=== PATIENT | female | born 1930 | race Caucasian/White ===

== ENCOUNTER 2016-06-25 11:47 | Emergency (ER) | payer MEDICARE ==
[2016-06-25] MEDS ORDERED: oxyCOD/ACETAMIN 5 MG/325 MG TABLET PO STA (13:50)
[2016-06-25] MEDS ORDERED: oxyCOD/ACETAMIN 5 MG/325 MG TABLET PO ONE (13:55)
[2016-06-25] MEDS ORDERED: ENOXAPARIN 100 MG/ML SYRINGE SUBQ STA (15:36)
[2016-06-25] MEDS ORDERED: ENOXAPARIN 100 MG/ML SYRINGE SUBQ ONE (15:41)
== END 2016-06-25 16:10 | disposition home or self-care (01) ==
DX: I82.C12 Acute embolism and thrombosis of left internal jugular vein (principal); I82.B12 Acute embolism and thrombosis of left subclavian vein
CPT/HCPCS: 36415; 76536; 85025; 93971; 96372; 99283; 99284; A9270; J1650

== ENCOUNTER 2016-08-08 12:12 | Outpatient (CLI) | payer MEDICARE, OTHER | END 2016-08-08 12:13 | disposition home or self-care (01) | DX: W18.12XA Fall from or off toilet with subsequent striking against object, initial encounter (principal); Y93.89 Activity, other specified; Y92.012 Bathroom of single-family (private) house as the place of occurrence of the external cause; R55 Syncope and collapse | CPT/HCPCS: A0425; A0427 ==

== ENCOUNTER 2016-08-08 12:59 | Observation (INO) | payer MEDICARE, OTHER ==
[2016-08-08] MEDS ORDERED: SODIUM CHLORIDE 0.9% 1,000 ML IV ONE (13:16)
[2016-08-08] MEDS ORDERED: cefTRIAXone 1 GM in SODIUM CHLORIDE 0.9% MINIBAG 100 ML IV STA ×2 (14:38→14:55)
[2016-08-08] MEDS ORDERED: cefTRIAXone 1 GM VIAL ONE (14:41)
[2016-08-08] MEDS ORDERED: HYDROcod/ACETAM 5/325 MG TABLET PO PRN (15:32)
[2016-08-08] MEDS ORDERED: ONDANSETRON 4 MG/2 ML VIAL IVP PRN (15:32)
[2016-08-08] MEDS ORDERED: SODIUM CHLORIDE FLUSH 0.9% 10 ML SYRINGE IVP PRN (15:32)
[2016-08-08] MEDS ORDERED: ACETAMINOPHEN 325 MG TABLET PO PRN (15:32)
[2016-08-08] MEDS: SODIUM CHLORIDE 0.9% 1,000 ML IV SCH (17:00)
[2016-08-08] MEDS: SODIUM CHLORIDE FLUSH 0.9% 10 ML SYRINGE IVP SCH (22:30)
[2016-08-08] MEDS ORDERED: SODIUM CHLORIDE 0.9% 500 ML IV SCH (23:33)
[2016-08-09] MEDS: SODIUM CHLORIDE 0.9% 1,000 ML IV SCH (00:26)
[2016-08-09] MEDS: SODIUM CHLORIDE FLUSH 0.9% 10 ML SYRINGE IVP SCH (04:57)
[2016-08-09] MEDS ORDERED: POLYETHYLENE GLYCOL 3350 17 GM PACKET PO SCH (09:00)
[2016-08-09] MEDS ORDERED: FAMOTIDINE 20 MG TABLET PO SCH (09:00)
[2016-08-09] MEDS ORDERED: cefTRIAXone 1 GM in SODIUM CHLORIDE 0.9% MINIBAG 100 ML IV SCH (09:00)
== END 2016-08-09 12:23 | disposition home or self-care (01) ==
DX: R55 Syncope and collapse (principal); E86.0 Dehydration; N39.0 Urinary tract infection, site not specified; S13.9XXA Sprain of joints and ligaments of unspecified parts of neck, initial encounter; S00.83XA Contusion of other part of head, initial encounter; S00.31XA Abrasion of nose, initial encounter; W18.12XA Fall from or off toilet with subsequent striking against object, initial encounter; C55 Malignant neoplasm of uterus, part unspecified; E78.5 Hyperlipidemia, unspecified; Z95.828 Presence of other vascular implants and grafts; Z79.899 Other long term (current) drug therapy; Z79.01 Long term (current) use of anticoagulants; Z90.710 Acquired absence of both cervix and uterus; Z86.718 Personal history of other venous thrombosis and embolism
CPT/HCPCS: 36415; 51701; 70450; 71010; 72125; 80048; 80053; 81001; 82330; 83605; 83690; 84484; 85025; 85610; 85730; 86850; 86900; 86901; 87077; 87086; 87181; 93005; 93010; 96361; 96365; 96375; 99284; 99285; A9270; G0378

== ENCOUNTER 2016-09-30 11:12 | Outpatient (CLI) | payer MEDICARE | END 2016-09-30 11:13 | disposition critical access hospital (66) | LOC: EMS 11:12 | PROVIDERS: ATTEND Surgery | DX: R55 Syncope and collapse (principal); R11.0 Nausea; R53.1 Weakness | CPT/HCPCS: A0425; A0427 ==

== ENCOUNTER 2016-09-30 11:51 | Emergency (ER) | payer MEDICARE ==
--- NOTE | 2016-09-30 12:29 | ED Physician Documentation ---
PD HPI SYNCOPE - Stated complaint Stated Complaint: SYNCOPE - Chief complaint Chief Complaint: Neuro - History obtained from History obtained from: Patient - History of Present Illness Witnessed: Witnessed (patient had chemo couple days ago and is feeling nauseated and less intake. Was walking toward bathroom, felt lightheaded and sat to the floor. Did not seem fully out. Was seen to be pale. EMS called and found patietn with low BP about 80s systolic. BS also low and given IV dextrose. Patient improved enroute. Feeling still weak in ED. No injury/pains.) Timing - onset: How many minutes ago (30), Today Preceding symptoms: Nausea / vomiting, Light headed, Generalized weakness. No: Headache, Chest pain, Palpitations, Abdominal pain Associated symptoms: Nausea / vomiting. No: Headache, Chest pain, Abdominal pain Contributing factors: Just stood up. 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 denies: Fever, Chills, Myalgias Nose: denies: Rhinorrhea / runny nose, Congestion Throat: denies: Sore throat Cardiac: denies: Chest pain / pressure, Palpitations Respiratory: denies: Dyspnea, Cough GI: reports: Nausea, Vomiting. denies: Abdominal Pain, Diarrhea, Bloody / black stool : denies: Dysuria, Frequency Neurologic: reports: Generalized weakness, Near syncope. 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 : Incontinence HEENT: None Psych: None Musculoskeletal: Osteoarthritis Derm: None - Past Surgical History Past Surgical History: Yes General: Appendectomy Ortho: Hip replacement, Knee replacement /DATA ENTRY ASSOCIATE: Hysterectomy, Other - Present Medications Home Medications: Ambulatory Orders Medication Instructions Recorded Confirmed Atorvastatin [Lipitor] 20 mg PO QPM 08/08/16 08/09/16 Dabigatran Etexilate Mesylate 150 mg PO DAILY 08/08/16 08/09/16 [Pradaxa] Fluoxetine HCl [Prozac] 20 mg PO DAILY 08/08/16 08/09/16 LORazepam [Ativan] 0.5 mg PO Q6H 08/08/16 08/09/16 Ondansetron HCl [Zofran] 8 mg PO BID PRN 08/08/16 08/09/16 Potassium Chloride 20 meq PO DAILY 08/08/16 08/09/16 Prochlorperazine Maleate 10 mg PO Q6H PRN 08/08/16 08/09/16 [Compazine] Acetaminophen [Tylenol] 650 mg PO Q4HR PRN #0 tablet 08/09/16 Famotidine [Pepcid] 20 mg PO DAILY #30 tablet 08/09/16 - Allergies Allergies/Adverse Reactions: Allergies Allergy/AdvReac Type Severity Reaction Status Date / Time cyclobenzaprine Allergy Hives Verified 08/08/16 13:43 - Social History Does the pt smoke?: No Smoking Status: Never smoker Does the pt drink ETOH?: No Does the pt have substance abuse?: No - Immunizations Immunizations are current?: Yes - POLST Patient has POLST: Yes PD ED PE NORMAL - Vitals Vital signs reviewed: Yes - General General: Alert and oriented X 3, Well developed/nourished, Other (yellow/purple ecchymosis lefft lateral periorbital, without current tenderness. Daughter says it was from fall 2 weeks ago.) - HEENT HEENT: Ears normal, Pharynx benign. No: Moist mucous membranes - Neck Neck: Supple, no meningeal sign, No adenopathy - Cardiac Cardiac: RRR, No murmur - Respiratory Respiratory: Clear bilaterally, Other (Port left upper chestwall without redness , drainage, nor tenderness. ) - Abdomen Abdomen: Normal bowel sounds, Non tender - Female Female : Deferred - Rectal Rectal: Deferred - Back Back: No CVA TTP - Derm Derm: No: Normal color (pale) - Extremities Extremities: No deformity, No tenderness to palpate, No edema, No calf tenderness / cord - Neuro Neuro: Alert and oriented X 3, No motor deficit, Normal speech Results - Vitals Vitals: Vital Signs - 24 hr 09/30/16 09/30/16 09/30/16 11:54 14:05 16:07 Temperature 35.9 C L 36.3 C L Heart Rate 88 86 69 Respiratory 21 16 18 Rate Blood Pressure 142/71 H 149/82 H 139/62 H O2 Saturation 95 96 95 Oxygen O2 Source Room air - Labs Labs: Laboratory Tests 09/30/16 09/30/16 09/30/16 12:15 12:15 12:15 WBC 4.6 L RBC 3.73 L Hgb 12.0 Hct 34.7 L MCV 92.9 MCH 32.0 H MCHC 34.5 RDW 18.0 H Plt Count 287 MPV 7.4 L Neut # 3.4 Lymph # 1.1 L [place] # 0.1 Eos # 0.0 Baso # 0.0 Absolute Nucleated RBC 0.00 Nucleated RBCs 0.0 Sodium 138 Potassium 3.1 L Chloride 103 Carbon Dioxide 26 Anion Gap 9.0 BUN 35 H Creatinine 0.8 Estimated GFR (MDRD) 68 L Glucose 130 H Calcium 8.6 Magnesium 1.5 L Total Bilirubin 0.9 AST 17 ALT 16 Alkaline Phosphatase 43 Total Protein 5.9 L Albumin 3.4 Globulin 2.5 Albumin/Globulin Ratio 1.4 Lipase 23 Urine Color Urine Clarity Urine pH Ur Specific [place] Urine Protein Urine Glucose (UA) Urine Ketones Urine Occult Blood Urine Nitrite Urine Bilirubin Urine Urobilinogen Ur Leukocyte Esterase Ur Microscopic Review Urine Culture Comments 09/30/16 13:25 WBC RBC Hgb Hct MCV MCH MCHC RDW Plt Count MPV Neut # Lymph # Hall # Eos # Baso # Absolute Nucleated RBC Nucleated RBCs Sodium Potassium Chloride Carbon Dioxide Anion Gap BUN Creatinine Estimated GFR (MDRD) Glucose Calcium Magnesium Total Bilirubin AST ALT Alkaline Phosphatase Total Protein Albumin Globulin Albumin/Globulin Ratio Lipase Urine Color YELLOW Urine Clarity CLEAR Urine pH 7.5 Ur Specific [place] 1.010 Urine Protein NEGATIVE Urine Glucose (UA) NEGATIVE Urine Ketones NEGATIVE Urine Occult Blood NEGATIVE Urine Nitrite NEGATIVE Urine Bilirubin NEGATIVE Urine Urobilinogen 1 (NORMAL) Ur Leukocyte Esterase NEGATIVE Ur Microscopic Review NOT INDICATED Urine Culture Comments NOT INDICATED - Rads (name of study) chest Radiology: Prelim report reviewed (clear) PD MEDICAL DECISION MAKING - ED course Complexity details: reviewed results, re-evaluated patient, considered differential, d/w patient Departure - Departure Disposition: 01 Home, Self Care Clinical Impression: Dehydration, Near syncope, Hypokalemia, Chemotherapy induced nausea and vomiting Clinical Impression: (Ruled Out): UTI (urinary tract infection) Condition: Stable Record reviewed to determine appropriate education?: Yes Follow-Up: Jr De aL Cruz MD [Primary Care Provider] - Comments: Usual medications. Encourage to drink frequent fluids. Double your potassium supplement daily for few days. Discharge Date/Time: 09/30/16 16:14
[2016-09-30 12:30] LABS: BASOPHILS % (AUTO) 0.2 %; EOSINOPHILS % (AUTO) 0.7 %; HCT - HEMATOCRIT 34.7 % (37.0-47.0); LYMPHOCYTES # (AUTO) 1.1 10^3/uL (1.5-3.5); LYMPHOCYTES % (AUTO) 24.7 %; MEAN CORPUSCULAR HGB CONC 34.5 g/dL (32.0-36.0); MEAN CORPUSCULAR VOLUME 92.9 fL (81.0-99.0); MEAN PLATELET VOLUME 7.4 fL (7.9-10.8); MONOCYTES # (AUTO) 0.1 10^3/uL (0.0-1.0); MONOCYTES % (AUTO) 1.3 %; NEUTROPHILS # (AUTO) 3.4 10^3/uL (1.5-6.6); NEUTROPHILS % (AUTO) 73.1 %; RED BLOOD COUNT 3.73 10^6/uL (4.20-5.40); UNCORRECTED WHITE BLOOD COUNT 4.6 x10^3/uL; WHITE BLOOD COUNT 4.6 x10^3/uL (4.8-10.8)
[2016-09-30 12:43] LABS: ALBUMIN/GLOBULIN RATIO 1.4 (1.0-2.2); BILIRUBIN,TOTAL 0.9 mg/dL (0.2-1.0); CALCIUM 8.6 mg/dL (8.5-10.3); CREATININE 0.8 mg/dL (0.4-1.0); POTASSIUM 3.1 mmol/L (3.5-5.0); TOTAL PROTEIN 5.9 g/dL (6.7-8.2)
[2016-09-30] MEDS ORDERED: SODIUM CHLORIDE 0.9% 1,000 ML IV ONE (13:10)
[2016-09-30] MEDS ORDERED: ONDANSETRON 4 MG/2 ML VIAL ONE (13:10)
[2016-09-30] MEDS ORDERED: ONDANSETRON 4 MG/2 ML VIAL IVP STA (13:15)
--- NOTE | 2016-09-30 13:42 | XRAY Preliminary Report ---
Exam: XR Chest 1 View Impression: New small left pleural effusion. [facility] SITE ID: [id number]
--- NOTE | 2016-09-30 13:44 | XRAY Report ---
EXAM: CHEST RADIOGRAPHY EXAM DATE: 09/30/2016 01:25 PM. CLINICAL HISTORY: Weakness, dyspnea. COMPARISON: 08/08/2016. TECHNIQUE: 1 view. FINDINGS: There is redemonstration of a port overlying the left chest wall. The tip is overlying the superior v laura cava. The appearance is similar to the previous study. The heart is mildly enlarged with atherosc lerosis of the aorta. There is no focal infiltrate. Blunting of the left costophrenic angle is noted may represent small left pleural effusion. No pneumothorax is seen. There are degenerative changes of both shoulders. Impression: New small left pleural effusion. [facility] Referring Provider Line: [phone] SITE ID: [id number]
[2016-09-30 13:45] LABS: BILIRUBIN,URINE NEGATIVE (NEGATIVE); PH,URINE 7.5 PH (5.0-7.5)
[2016-09-30 13:47] LABS: UA CHARGE (STRIP ONLY) YES; UR CULTURE IF IND NOT INDICATED
[2016-09-30] MEDS ORDERED: POTASSIUM BICARB 25 MEQ TABLET PO STA (13:57)
[2016-09-30] MEDS ORDERED: POTASSIUM CHLOR 10 MEQ/100 ML 100 ML IV ONE ×2 (13:57→13:59)
[2016-09-30] MEDS ORDERED: POTASSIUM BICARB 25 MEQ TABLET PO ONE (13:59)
[2016-09-30 16:07] VITALS: BP 139/62
== END 2016-09-30 16:14 | disposition home or self-care (01) ==
LOC: ED 11:51
DX: E86.0 Dehydration (principal); R55 Syncope and collapse; E87.6 Hypokalemia; R11.2 Nausea with vomiting, unspecified; I45.2 Bifascicular block; R94.31 Abnormal electrocardiogram [ECG] [EKG]; E78.00 Pure hypercholesterolemia, unspecified; K21.9 Gastro-esophageal reflux disease without esophagitis; M19.90 Unspecified osteoarthritis, unspecified site
CPT/HCPCS: 36415; 51701; 71010; 80053; 81003; 83690; 83735; 85025; 93005; 96374; 96375; 99284; A9270; 81001; 87086

== ENCOUNTER 2016-11-12 23:04 | Outpatient (CLI) | payer MEDICARE | END 2016-11-12 23:05 | disposition critical access hospital (66) | DX: R11.2 Nausea with vomiting, unspecified (principal); R53.1 Weakness | CPT/HCPCS: A0425; A0427 ==

== ENCOUNTER 2016-11-12 23:48 | Emergency (ER) | payer MEDICARE ==
[2016-11-13 00:35] LABS: BILIRUBIN,URINE NEGATIVE (NEGATIVE)
[2016-11-13 00:37] LABS: UA w/ MICROSCOPIC CHARGE YES
[2016-11-13 00:44] LABS: UR CULTURE IF IND INDICATED; WBC,URINE >25 /HPF (0-5)
[2016-11-13] MEDS ORDERED: cefTRIAXone 1 GM in SODIUM CHLORIDE 0.9% MINIBAG 100 ML IV STA (00:50)
--- NOTE | 2016-11-13 00:51 | XRAY Preliminary Report ---
Exam: XR Chest 2 View PA/LAT IMPRESSION: COPD. No acute pulmonary process. [facility] SITE ID: [id number]
[2016-11-13] MEDS ORDERED: cefTRIAXone 1 GM VIAL ONE (00:53)
[2016-11-13 00:59] LABS: ALBUMIN/GLOBULIN RATIO 1.3 (1.0-2.2); BILIRUBIN,TOTAL 0.9 mg/dL (0.2-1.0); BUN - BLOOD UREA NITROGEN 21 mg/dL (6-20); CALCIUM 8.6 mg/dL (8.5-10.3); CARBON DIOXIDE - CO2 25 mmol/L (21-32); CHLORIDE 109 mmol/L (101-111); CREATININE 0.8 mg/dL (0.4-1.0); GFR - MDRD 68 (>89); GLUCOSE 162 mg/dL (70-100); LIPASE 26 U/L (22-51); POTASSIUM 2.9 mmol/L (3.5-5.0); SODIUM 143 mmol/L (135-145); TOTAL PROTEIN 6.5 g/dL (6.7-8.2)
[2016-11-13 01:00] LABS: BASOPHILS % (AUTO) 0.2 %; EOSINOPHILS # (AUTO) 0.1 10^3/uL (0.0-0.7); EOSINOPHILS % (AUTO) 0.5 %; HCT - HEMATOCRIT 38.1 % (37.0-47.0); HGB - HEMOGLOBIN 12.7 g/dL (12.0-16.0); LYMPHOCYTES # (AUTO) 0.9 10^3/uL (1.5-3.5); LYMPHOCYTES % (AUTO) 8.8 %; MEAN CORPUSCULAR HEMOGLOBIN 31.8 pg (27.0-31.0); MEAN CORPUSCULAR HGB CONC 33.3 g/dL (32.0-36.0); MEAN CORPUSCULAR VOLUME 95.4 fL (81.0-99.0); MEAN PLATELET VOLUME 7.6 fL (7.9-10.8); MONOCYTES # (AUTO) 0.5 10^3/uL (0.0-1.0); MONOCYTES % (AUTO) 4.6 %; NEUTROPHILS # (AUTO) 9.1 10^3/uL (1.5-6.6); NEUTROPHILS % (AUTO) 85.9 %; RED CELL DISTRIBUTION WIDTH 16.1 % (12.0-15.0); UNCORRECTED WHITE BLOOD COUNT 10.6 x10^3/uL; WHITE BLOOD COUNT 10.6 x10^3/uL (4.8-10.8)
--- NOTE | 2016-11-13 01:09 | ED Physician Documentation ---
PD HPI NVD - Stated complaint Stated Complaint: VOMITTING/WEAKNESS - Chief complaint Chief Complaint: Abd Pain - History obtained from History obtained from: Patient, Family - History of Present Illness Timing - onset: Today Timing - duration: Hours Timing - details: Abrupt onset, Now resolved Associated symptoms: No: Fever, Abdominal pain Contributing factors: No: Sick contact, Bad food Improved by: Meds Similar symptoms before: Diagnosis (vomiting from chemo) Recently seen: Other (finished radiation therapy last week.) - Additonal information Additional information: 86-year-old female has recently finished chemo and radiation therapy for ovarian cancer. She has not had chemotherapy for over a month and had her last radiation therapy 1 week ago. Tonight she was eating dinner and following dinner she had a piece of rhubarb cake and then shortly after that she been having some vomiting and this appeared to come from nowhere. She tried to take some of her nausea medicine and vomited this as well. She did get a dose of Zofran intravenously in route to the hospital and has resolution of her symptoms at the time of evaluation in the emergency department. Review of Systems Constitutional: reports: Chills, Fatigue, Sweats. denies: Fever Eyes: denies: Decreased vision Ears: denies: Ear pain Nose: reports: Rhinorrhea / runny nose Throat: denies: Sore throat Cardiac: denies: Chest pain / pressure, Palpitations Respiratory: reports: Cough. denies: Dyspnea GI: reports: Nausea, Vomiting, Constipation, Diarrhea (2 days ago). denies: Abdominal Pain : denies: Dysuria, Frequency Skin: denies: Rash Musculoskeletal: denies: Neck pain, Back pain, Extremity pain Neurologic: reports: Numbness (to both forearms for the past month). 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 cancer : Incontinence HEENT: None Psych: None Musculoskeletal: Osteoarthritis Derm: None - Past Surgical History Past Surgical History: Yes General: Appendectomy Ortho: Hip replacement, Knee replacement /MEDIA PROFESSIONAL: Hysterectomy, Other - Present Medications Home Medications: Ambulatory Orders Medication Instructions Recorded Confirmed Atorvastatin [Lipitor] 20 mg PO QPM 08/08/16 11/13/16 Dabigatran Etexilate Mesylate 150 mg PO DAILY 08/08/16 11/13/16 [Pradaxa] Fluoxetine HCl [Prozac] 20 mg PO DAILY 08/08/16 11/13/16 LORazepam [Ativan] 0.5 mg PO Q6H 08/08/16 11/13/16 Ondansetron HCl [Zofran] 8 mg PO BID PRN 08/08/16 11/13/16 Prochlorperazine Maleate 10 mg PO Q6H PRN 08/08/16 11/13/16 [Compazine] Aspirin 81 mg PO DAILY 11/13/16 11/13/16 Cetirizine [ZyrTEC] 10 mg PO ONCE 11/13/16 11/13/16 Clotrimazole/Betamethasone Dip 1 applic TOP DAILY 11/13/16 11/13/16 [Clotrimazole-Betamethasone Crm] Dexamethasone [Decadron] 8 mg PO BID 11/13/16 11/13/16 Docusate Sodium [Dss] 250 mg PO DAILY PRN 11/13/16 11/13/16 Potassium Chloride 20 mg PO DAILY 11/13/16 11/13/16 Rivaroxaban [Xarelto] 15 mg PO BID 11/13/16 11/13/16 Sulfamethoxazole/Trimethoprim 1 each PO BID #20 tablet 11/13/16 [Sulfamethoxazole-Tmp Ds Tablet] Triamterene/Hydrochlorothiazid 1 cap PO DAILY 11/13/16 11/13/16 [Triamterene-Hctz 37.5-25 mg Cp] oxyCODONE [Roxicodone] 1 - 2 tab PO Q4HR PRN 11/13/16 11/13/16 - Allergies Allergies/Adverse Reactions: Allergies Allergy/AdvReac Type Severity Reaction Status Date / Time cyclobenzaprine Allergy Hives Verified 08/08/16 13:43 - Social History Does the pt smoke?: No Smoking Status: Never smoker Does the pt drink ETOH?: No Does the pt have substance abuse?: No - Immunizations Immunizations are current?: Yes - POLST Patient has POLST: Yes PD ED PE NORMAL - Vitals Vital signs reviewed: Yes (Normal) - General General: Alert and oriented X 3, No acute distress, Well developed/nourished, Other (The patient prefers to lay with her eyes closed.) - HEENT HEENT: Atraumatic, PERRL, EOMI - Neck Neck: Supple, no meningeal sign - Cardiac Cardiac: No murmur, Other (Tachycardic to 110.) - Respiratory Respiratory: No respiratory distress, Other (Rhonchi at the left base.) - Abdomen Abdomen: Soft, Non tender - Back Back: No CVA TTP, No spinal TTP - Derm Derm: Normal color, Warm and dry, No rash - Extremities Extremities: No deformity, No edema - Neuro Neuro: Alert and oriented X 3, No motor deficit, No sensory deficit, Normal speech - Psych Psych: Normal mood, Normal affect Results - Vitals Vitals: Vital Signs - 24 hr 11/12/16 11/13/16 11/13/16 23:50 00:50 01:37 Temperature 36.5 C 36.9 C Heart Rate 98 96 92 Respiratory 20 25 H 18 Rate Blood Pressure 123/66 157/91 H 148/89 H O2 Saturation 97 93 99 11/13/16 02:22 Temperature Heart Rate 91 Respiratory 18 Rate Blood Pressure 157/85 H O2 Saturation 96 Oxygen O2 Source Room air - Labs Labs: Laboratory Tests 11/13/16 11/13/16 11/13/16 00:06 00:42 00:42 WBC 10.6 RBC 4.00 L Hgb 12.7 Hct 38.1 MCV 95.4 MCH 31.8 H MCHC 33.3 RDW 16.1 H Plt Count 199 MPV 7.6 L Neut # 9.1 H Lymph # 0.9 L [place] # 0.5 Eos # 0.1 Baso # 0.0 Absolute Nucleated RBC 0.00 Nucleated RBCs 0.0 Sodium 143 Potassium 2.9 L Chloride 109 Carbon Dioxide 25 Anion Gap 9.0 BUN 21 H Creatinine 0.8 Estimated GFR (MDRD) 68 L Glucose 162 H Calcium 8.6 Total Bilirubin 0.9 AST 15 ALT < 10 L Alkaline Phosphatase 56 Troponin I Total Protein 6.5 L Albumin 3.7 Globulin 2.8 Albumin/Globulin Ratio 1.3 Lipase 26 Urine Color YELLOW Urine Clarity HAZY Urine pH 6.0 Ur Specific [place] 1.025 Urine Protein NEGATIVE Urine Glucose (UA) NEGATIVE Urine Ketones TRACE Urine Occult Blood TRACE-INTA Urine Nitrite NEGATIVE Urine Bilirubin NEGATIVE Urine Urobilinogen 0.2 (NORMAL) Ur Leukocyte Esterase SMALL H Urine RBC 0-5 Urine WBC >25 H Ur Squamous Epith Cells RARE Squamous Urine Bacteria Many H Urine Mucus Few Strands Ur Microscopic Review INDICATED Urine Culture Comments INDICATED 11/13/16 00:42 WBC RBC Hgb Hct MCV MCH MCHC RDW Plt Count MPV Neut # Lymph # [place] # Eos # Baso # Absolute Nucleated RBC Nucleated RBCs Sodium Potassium Chloride Carbon Dioxide Anion Gap BUN Creatinine Estimated GFR (MDRD) Glucose Calcium Total Bilirubin AST ALT Alkaline Phosphatase Troponin I < 0.04 Total Protein Albumin Globulin Albumin/Globulin Ratio Lipase Urine Color Urine Clarity Urine pH Ur Specific [place] Urine Protein Urine Glucose (UA) Urine Ketones Urine Occult Blood Urine Nitrite Urine Bilirubin Urine Urobilinogen Ur Leukocyte Esterase Urine RBC Urine WBC Ur Squamous Epith Cells Urine Bacteria Urine Mucus Ur Microscopic Review Urine Culture Comments Procedures - IVC sono (time) 0119 Bedside IVC sono: IVC measures (cm) (0.98), IVC collapsed c insp (cm) (complete) , Dehydration (after one liter another is required.) PD MEDICAL DECISION MAKING - ED course Complexity details: reviewed old records, reviewed results, re-evaluated patient , considered differential, d/w patient, d/w family ED course: 86-year-old female with acute onset of vomiting this evening after feeling well during the day is found to have urinary tract infection with greater than 25 white blood cells per high-powered field. She is also found to be dehydrated and has a low potassium. She is administered in a liter of saline on arrival to the emergency department and a second liter is administered when her inferior vena cava is still collapsing. She is administered 1 g of ceftriaxone and 25 mEq of sodium bicarbonate.The patient feels that she wants to go home. Departure - Departure Disposition: Home, Self Care Clinical Impression: Hypokalemia, Dehydration UTI (urinary tract infection) Qualifiers: Urinary tract infection type: acute cystitis Hematuria presence: without hematuria Qualified Code(s): N30.00 - Acute cystitis without hematuria Vomiting Qualifiers: Vomiting type: unspecified Vomiting Intractability: non-intractable Nausea presence: with nausea Qualified Code(s): R11.2 - Nausea with vomiting, unspecified Condition: Stable Instructions: Diet High Potassium Dc, ED Dehydration, ED UTI Cystitis Female Follow-Up: Jr De La Cruz MD [Primary Care Provider] - Prescriptions: Sulfamethoxazole/Trimethoprim [Sulfamethoxazole-Tmp Ds Tablet] 1 each PO BID # 20 tablet
[2016-11-13] MEDS ORDERED: POTASSIUM BICARB 25 MEQ TABLET PO STA (01:11)
--- NOTE | 2016-11-13 01:11 | XRAY Report ---
EXAM: CHEST RADIOGRAPHY EXAM DATE: 11/13/2016 12:35 AM. CLINICAL HISTORY: Left base rhonchi. COMPARISON: 09/30/2016. TECHNIQUE: 2 views. FINDINGS: Lungs/Pleura: No focal opacities evident. No pleural effusion. No pneumothorax. Increased lung volume s. Mediastinum: Stable cardiac silhouette. Other: Left-sided port terminates at the junction of the SVC and brachiocephalic vein. IMPRESSION: COPD. No acute pulmonary process. [facility] Referring Provider Line: [phone] SITE ID: [id number]
[2016-11-13] MEDS ORDERED: POTASSIUM BICARB 25 MEQ TABLET PO ONE (01:13)
[2016-11-13] MEDS ORDERED: SODIUM CHLORIDE 0.9% 1,000 ML IV ONE (01:20)
[2016-11-13] MEDS ORDERED: POTASSIUM CHLOR 10 MEQ/100 ML 100 ML IV ONE ×2 (01:36→01:49)
[2016-11-13 03:25] VITALS: BP 159/66
== END 2016-11-13 03:26 | disposition home or self-care (01) ==
LOC: EDUNIT# → ED 23:48
DX: N39.0 Urinary tract infection, site not specified (principal); E87.6 Hypokalemia; E86.0 Dehydration; C56.9 Malignant neoplasm of unspecified ovary; E78.00 Pure hypercholesterolemia, unspecified; Z79.82 Long term (current) use of aspirin; Z79.01 Long term (current) use of anticoagulants; Z92.21 Personal history of antineoplastic chemotherapy; Z92.3 Personal history of irradiation; Z96.649 Presence of unspecified artificial hip joint; Z96.659 Presence of unspecified artificial knee joint
CPT/HCPCS: 36415; 51701; 71020; 80053; 81001; 83690; 84484; 85025; 87077; 87086; 87181; 96361; 96365; 96375; 99284; A9270; 81003

== ENCOUNTER 2016-12-16 17:44 | Emergency (ER) | payer MEDICARE ==
[2016-12-16] MEDS ORDERED: SODIUM CHLORIDE 0.9% 1,000 ML IV ONE (18:46)
[2016-12-16] MEDS ORDERED: ONDANSETRON 4 MG/2 ML VIAL IVP STA (18:46)
--- NOTE | 2016-12-16 18:49 | ED Physician Documentation ---
History of Present Illness - Stated complaint Stated Complaint: NAUSEA - Chief complaint Chief Complaint: Abd Pain - Additonal information Additional information: hx from pt and DOP 86 y/o f hx ovarian cancer s/p THBSO chemo and radiation last chemo and rad over a month ago per pt and DOP no detectable cancer and pt determined not to do any more cancer tx any way recently finished ab for a UTI Wednesday she came to get her port taken out - long day - did not eat or drink etc next days felt nauseated and today NV and cant sleep anything down only med she took today was her pradaxa also hx gallstones but no ruq pain or fever Review of Systems Constitutional: denies: Fever, Chills Cardiac: denies: Chest pain / pressure Respiratory: denies: Dyspnea GI: reports: Nausea, Vomiting. denies: Abdominal Pain, Diarrhea : reports: Frequency. 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 cancer : Incontinence HEENT: None Psych: None Musculoskeletal: Osteoarthritis Derm: None - Past Surgical History Past Surgical History: Yes General: Appendectomy Ortho: Hip replacement, Knee replacement /TIMBER TRIMMER: Hysterectomy, Other - Present Medications Home Medications: Ambulatory Orders Medication Instructions Recorded Confirmed Atorvastatin [Lipitor] 20 mg PO QPM 08/08/16 12/16/16 Dabigatran Etexilate Mesylate 150 mg PO DAILY 08/08/16 12/16/16 [Pradaxa] Fluoxetine HCl [Prozac] 20 mg PO DAILY 08/08/16 12/16/16 LORazepam [Ativan] 0.5 mg PO Q6H 08/08/16 12/16/16 Ondansetron HCl [Zofran] 8 mg PO BID PRN 08/08/16 12/16/16 Prochlorperazine Maleate 10 mg PO Q6H PRN 08/08/16 12/16/16 [Compazine] Aspirin 81 mg PO DAILY 11/13/16 12/16/16 Cetirizine [ZyrTEC] 10 mg PO ONCE 11/13/16 12/16/16 Clotrimazole/Betamethasone Dip 1 applic TOP DAILY 11/13/16 12/16/16 [Clotrimazole-Betamethasone Crm] Dexamethasone [Decadron] 8 mg PO BID 11/13/16 12/16/16 Docusate Sodium [Dss] 250 mg PO DAILY PRN 11/13/16 12/16/16 Potassium Chloride 20 mg PO DAILY 11/13/16 12/16/16 Rivaroxaban [Xarelto] 15 mg PO BID 11/13/16 12/16/16 Sulfamethoxazole/Trimethoprim 1 each PO BID #20 tablet 11/13/16 12/16/16 [Sulfamethoxazole-Tmp Ds Tablet] Triamterene/Hydrochlorothiazid 1 cap PO DAILY 11/13/16 12/16/16 [Triamterene-Hctz 37.5-25 mg Cp] oxyCODONE [Roxicodone] 1 - 2 tab PO Q4HR PRN 11/13/16 12/16/16 - Allergies Allergies/Adverse Reactions: Allergies Allergy/AdvReac Type Severity Reaction Status Date / Time cyclobenzaprine Allergy Hives Verified 12/16/16 18:14 - Social History Does the pt smoke?: No Smoking Status: Never smoker Does the pt drink ETOH?: No Does the pt have substance abuse?: No - Immunizations Immunizations are current?: Yes - POLST Patient has POLST: Yes PD ED PE NORMAL - Vitals Vital signs reviewed: Yes - General General: Other (laying still with eys closed) - HEENT HEENT: Atraumatic - Neck Neck: Supple, no meningeal sign - Cardiac Cardiac: RRR - Respiratory Respiratory: No respiratory distress, Clear bilaterally - Abdomen Abdomen: Soft, Non tender - Derm Derm: Normal color - Neuro Neuro: Alert and oriented X 3 Results - Vitals Vitals: Vital Signs - 24 hr 12/16/16 12/16/16 18:11 21:25 Temperature 36.8 C Heart Rate 83 80 Respiratory 16 16 Rate Blood Pressure 130/66 153/64 H O2 Saturation 93 97 Oxygen O2 Source Room air - Labs Labs: Laboratory Tests 12/16/16 12/16/16 12/16/16 18:30 18:30 19:50 WBC 4.7 L RBC 4.02 L Hgb 12.7 Hct 37.7 MCV 93.9 MCH 31.7 H MCHC 33.7 RDW 15.0 Plt Count 221 MPV 7.6 L Neut # 3.0 Lymph # 1.4 L [place] # 0.2 Eos # 0.0 Baso # 0.0 Absolute Nucleated RBC 0.00 Nucleated RBCs 0.1 Sodium 139 Potassium 3.0 L Chloride 103 Carbon Dioxide 25 Anion Gap 11.0 BUN 9 Creatinine 0.5 Estimated GFR (MDRD) 118 Glucose 130 H Calcium 8.8 Total Bilirubin 0.9 AST 15 ALT < 10 L Alkaline Phosphatase 38 L Total Protein 6.3 L Albumin 3.6 Globulin 2.7 Albumin/Globulin Ratio 1.3 Lipase 22 Urine Color YELLOW Urine Clarity CLEAR Urine pH 7.0 Ur Specific [place] 1.010 Urine Protein NEGATIVE Urine Glucose (UA) NEGATIVE Urine Ketones NEGATIVE Urine Occult Blood TRACE-INTA Urine Nitrite NEGATIVE Urine Bilirubin NEGATIVE Urine Urobilinogen 0.2 (NORMAL) Ur Leukocyte Esterase NEGATIVE Ur Microscopic Review NOT INDICATED Urine Culture Comments NOT INDICATED PD MEDICAL DECISION MAKING - ED course ED course: labs all normal no GB TTP no urine infection no CP serial abd exams benign etiology unclear except pt was very fatigued and perhaps dehydrated after travelling all day to [place] to get her port removed she felt better after IVF, had her K replaced, was able to tolerate PO, has rx for phenergan and zofran already will dc Departure - Departure Disposition: 01 Home, Self Care Clinical Impression: Nausea Condition: Good Instructions: ED Nausea Vomiting Follow-Up: rJ De La Cruz MD [Primary Care Provider] - Comments: Your blood work and urine tests were reassuring - normal kidney gallbladder pancreas function, not anemic, no urine infection It is possible your symptoms were due to being dehydrated after your long day to get the port out Wednesday Since you are feeling better after the IV fluids and IV zofran I think it is safe for you to go home Please follow up with your PMD for a recheck later this week Return if worse or new symptoms develop
[2016-12-16 18:53] LABS: BASOPHILS % (AUTO) 0.7 %; EOSINOPHILS % (AUTO) 0.8 %; HCT - HEMATOCRIT 37.7 % (37.0-47.0); HGB - HEMOGLOBIN 12.7 g/dL (12.0-16.0); LYMPHOCYTES # (AUTO) 1.4 10^3/uL (1.5-3.5); LYMPHOCYTES % (AUTO) 29.5 %; MEAN CORPUSCULAR HEMOGLOBIN 31.7 pg (27.0-31.0); MEAN CORPUSCULAR HGB CONC 33.7 g/dL (32.0-36.0); MEAN CORPUSCULAR VOLUME 93.9 fL (81.0-99.0); MEAN PLATELET VOLUME 7.6 fL (7.9-10.8); MONOCYTES # (AUTO) 0.2 10^3/uL (0.0-1.0); MONOCYTES % (AUTO) 4.9 %; NEUTROPHILS % (AUTO) 64.1 %; NUCLEATED RED BLOOD CELLS AUTO 0.1 /100WBC; RED BLOOD COUNT 4.02 10^6/uL (4.20-5.40); UNCORRECTED WHITE BLOOD COUNT 4.7 x10^3/uL; WHITE BLOOD COUNT 4.7 x10^3/uL (4.8-10.8)
[2016-12-16] MEDS ORDERED: ONDANSETRON 4 MG/2 ML VIAL ONE (18:54)
[2016-12-16 19:03] LABS: ALBUMIN/GLOBULIN RATIO 1.3 (1.0-2.2); BILIRUBIN,TOTAL 0.9 mg/dL (0.2-1.0); BUN - BLOOD UREA NITROGEN 9 mg/dL (6-20); CALCIUM 8.8 mg/dL (8.5-10.3); CARBON DIOXIDE - CO2 25 mmol/L (21-32); CHLORIDE 103 mmol/L (101-111); CREATININE 0.5 mg/dL (0.4-1.0); GFR - MDRD 118 (>89); GLUCOSE 130 mg/dL (70-100); LIPASE 22 U/L (22-51); SODIUM 139 mmol/L (135-145); TOTAL PROTEIN 6.3 g/dL (6.7-8.2)
[2016-12-16] MEDS ORDERED: POTASSIUM CHLOR 10 MEQ/100 ML 100 ML IV ONE ×2 (19:10→19:25)
[2016-12-16] MEDS ORDERED: POTASSIUM CHLORIDE 20 MEQ TABLET PO STA (19:10)
[2016-12-16] MEDS ORDERED: POTASSIUM CHLORIDE 20 MEQ TABLET PO ONE (19:25)
--- NOTE | 2016-12-16 19:55 | XRAY Preliminary Report ---
Exam: XR Chest 1 View IMPRESSION: 1. There is cardiomegaly with thoracic aortic calcification. 2. Left costophrenic sulcus opacity could represent pleural effusion or pleural thickening. 3. No evidence of focal infiltrate. 4. No pneumothorax. [facility] SITE ID: [id number]
--- NOTE | 2016-12-16 19:57 | XRAY Report ---
EXAM: CHEST RADIOGRAPHY EXAM DATE: 12/16/2016 07:29 PM. CLINICAL HISTORY: Nausea. COMPARISON: 11/13/2016. TECHNIQUE: 1 view. FINDINGS: Lungs/Pleura: Lungs are well expanded. There is left costophrenic sulcus opacity. No evidence of foca l infiltrate. No pneumothorax. Mediastinum: There is cardiomegaly. There is thoracic aortic calcification. Other: None. IMPRESSION: 1. There is cardiomegaly with thoracic aortic calcification. 2. Left costophrenic sulcus opacity could represent pleural effusion or pleural thickening. 3. No evidence of focal infiltrate. 4. No pneumothorax. [facility] Referring Provider Line: [phone] SITE ID: [id number]
[2016-12-16 20:06] LABS: BILIRUBIN,URINE NEGATIVE (NEGATIVE)
[2016-12-16 20:07] LABS: UA CHARGE (STRIP ONLY) YES; UR CULTURE IF IND NOT INDICATED
[2016-12-16] MEDS ORDERED: SODIUM CHLORIDE FLUSH 0.9% 10 ML SYRINGE IVP ONE (20:57)
[2016-12-16 22:44] VITALS: BP 149/76
== END 2016-12-16 22:44 | disposition home or self-care (01) ==
LOC: ED 17:44
DX: R11.2 Nausea with vomiting, unspecified (principal); C55 Malignant neoplasm of uterus, part unspecified; Z79.01 Long term (current) use of anticoagulants; Z79.82 Long term (current) use of aspirin
CPT/HCPCS: 36415; 71010; 80053; 81003; 83690; 85025; 96374; 96375; 99284; A9270; 81001; 87086